=== PATIENT | male | born 1995 | race Caucasian/White ===

== ENCOUNTER 2023-11-09 23:56 | Emergency (ER) | payer SELFPAY ==
[~2023-11-09] VITALS: Ht 170.2 cm; Wt 91.0 kg
[2023-11-09 23:59] VITALS: O2SAT 98
[2023-11-10 00:30] VITALS: BP 109/70; PULSE 94; TEMP 98; O2SAT 98
[2023-11-10 01:00] VITALS: RESP 19
== END 2023-11-10 01:48 | disposition home or self-care (01) ==
LOC: ER 23:56
DX: S01.01XA Laceration without foreign body of scalp, initial encounter (principal); W03.XXXA Other fall on same level due to collision with another person, initial encounter; Y93.89 Activity, other specified; Y92.89 Other specified places as the place of occurrence of the external cause; Y99.8 Other external cause status
CPT/HCPCS: 12004; 99283; 73120; Z7610 ×2